=== PATIENT | male | born 1975 | race Caucasian/White ===

== ENCOUNTER 2023-06-04 21:07 | Emergency (ER) | payer OTHER ==
[~2023-06-04] VITALS: Ht 180.3 cm; Wt 129.8 kg
[2023-06-04 22:00] LABS: BASOPHILS # (AUTO) 0.1 X10'3 (0-0.2); BASOPHILS % (AUTO) 0.7 % (0-1); EOSINOPHILS # (AUTO) 0.2 X10'3 (0-0.9); EOSINOPHILS % (AUTO) 2.3 % (0-6); HEMATOCRIT 41.1 % (42.0-52.0); HEMOGLOBIN 14.4 g/dl (14.0-17.9); LYMPHOCYTES # (AUTO) 1.5 X10'3 (1.1-4.8); LYMPHOCYTES % (AUTO) 16.9 % (21-51); MEAN CORPUSCULAR HEMOGLOBIN 32.4 PG (27.0-31.0); MEAN CORPUSCULAR VOLUME 92.4 FL (78-98); MEAN PLATELET VOLUME 7.3 FL (7.4-10.4); MONOCYTES # (AUTO) 0.9 X10'3 (0-0.9); MONOCYTES % (AUTO) 9.9 % (2-12); NEUTROPHILS # (AUTO) 6.3 X10'3 (1.8-7.7); NEUTROPHILS % (AUTO) 70.2 % (42-75); PLATELET COUNT 200 X10'3 (140-440); RED BLOOD COUNT 4.45 X10'6 (4.70-6.10); RED CELL DISTRIBUTION WIDTH 13.8 % (11.5-14.5); WHITE BLOOD COUNT 8.9 X10'3 (4.5-11.0)
[2023-06-04 22:07] LABS: ALBUMIN 3.3 G/DL (3.4-5.0); ANION GAP 11 (8-16); BLOOD UREA NITROGEN 14 MG/DL (7-18); CALCIUM 8.4 MG/DL (8.5-10.1); CHLORIDE 100 MMOL/L (99-107); CREATININE 1.17 MG/DL (0.60-1.10); GLUCOSE 162 MG/DL (70-104); POTASSIUM 3.6 MMOL/L (3.5-5.1); PRO BRAIN NATRIURETIC PEPTIDE 1486 PG/ML (0-125); SODIUM 139 MMOL/L (135-145); TOTAL CARBON DIOXIDE 28.5 MMOL/L (24-32); eCRCL 83 ML/MIN; eGFR 67 ML/MIN
[2023-06-04] MEDS ORDERED: METO5TAB7 PO (23:57)
[2023-06-04] MEDS ORDERED: AZIT-164 PO (23:59)
[2023-06-05] MEDS: azithromycin 250mg tablet PO ONE (00:04)
[2023-06-05] MEDS: furosemide 10 MG/1 ML 10ml inj IV ONE (00:04)
[2023-06-05] MEDS: amLODIPine 5mg tablet PO ONE (00:51)
[2023-06-05 01:00] VITALS: BP 174/108; PULSE 97; RESP 20; TEMP 98.6; O2SAT 95
== END 2023-06-05 01:04 | disposition home or self-care (01) ==
LOC: ER 21:08
DX: I11.0 Hypertensive heart disease with heart failure (principal); I50.9 Heart failure, unspecified; Z79.2 Long term (current) use of antibiotics; Z79.899 Other long term (current) drug therapy
CPT/HCPCS: 36415; 71045; 80048; 83880; 84484; 85025; 93005; 96374; 99285; J1940